=== PATIENT | female | born 1990 | race Caucasian/White ===

== ENCOUNTER 2018-04-02 15:31 | Outpatient (REF) | payer MEDICAID, SELFPAY ==
[2018-04-02 15:45] VITALS: BP 103/72; PULSE 94; RESP 14; TEMP 36.6; O2SAT 97
--- NOTE | 2018-04-02 16:06 | ED.GENADUL_ITS ---
Disposition Clinical Impression: Bruising Disposition: HOME Condition: Good Additional Instructions: your lab work did not show any concerning findings you should contact [facility] for assistance in getting insurance. if you have fevers, severe pain or abdominal pain return to the emergency department Medical Decision Making - Lab Data Results reviewed for labs ordered during visit: Yes - Medical Decision Making pt here with bruising of the legs without known trauma. She has no significant complaints and no bleeding elsewhere so doubt dic or other significant coagulopathy. Will evaluate for this and eval for thrombocytopenia and monitor pt remains stable, ambulating without pain or other changes. No lab abnormalities at this time. Feel she is stable for d/c. Will place on our follow up list to assist in insurance and setting up with local primary care provider - Differential Diagnosis coagulopathy, varices History of Present Illness - General Chief complaint: GenMedical Stated complaint: PER DR BARNEY/HEP-C/BRUISING Time Seen by Provider: 04/02/18 15:44 Source: patient Mode of arrival: ambulatory Limitations: no limitations - History of Present Illness Initial comments: 27 yo female with hx of Hep C not on any medications comes in [facility] she recently moved to the area and has no pcp, and was told by her GI provider's office In [place] to come here due to a few days of small bruising on the legs without known trauma. She denies fevers, chills, chest pain, sob, abd pain, has had general fatigue for 2-3 days otherwise in no distress, is sitting in bed feeding her child without problems. Complaint: bruising of legs Onset/Timin -: days(s) Location: lower extremity Radiation: non-radiation Improves with: none Worsens with: none Treatments Prior to Arrival: none - Related Data Pnv95/Ferrous Fumarate/FA [ Formula Tablet] 1 tab PO DAILY 04/02/18 Allergies Allergy/AdvReac Type Severity Reaction Status Date / Time bee venom protein (honey bee) Allergy Severe Anaphylaxsi Unverified 04/02/18 15: 48 s Review of Systems Constitutional: denies: fever Respiratory: denies: shortness of breath Cardiovascular: denies: chest pain Gastrointestinal: denies: abdominal pain, nausea, vomiting Musculoskeletal: denies: back pain Skin: rash Neurological: denies: headache Comment: All other systems reviewed and negative Past Medical History - Past Medical History hepatitis C - Social History Smoking status: current everyday smoker Alcohol use: none Drug use: none General Exam - General Limitations: no limitations General appearance: alert, in no apparent distress - Head Head exam: Present: atraumatic - Eye Eye exam: Present: normal apperance - ENT ENT exam: Present: mucous membranes moist - Neck Neck exam: Present: normal inspection - Respiratory Respiratory exam: Absent: respiratory distress - Cardiovascular Cardiovascular Exam: Present: regular rate - GI/Abdominal GI/Abdominal exam: Present: soft. Absent: tenderness - Extremities Exam Extremities exam: Present: normal capillary refill, other (small areas of bruising on both legs in multiple areas, that are nontender to palpation and not bigger than 1cm in diameter) - Neurological Exam Neurological exam: Present: alert, oriented X3. Absent: motor sensory deficit - Psychiatric Psychiatric exam: Present: normal affect - Skin Skin exam: Present: warm Course Vital Signs - 24 hr 04/02/18 15:45 Temperature 97.9 F Pulse 94 H Respiratory 14 Rate Blood Pressure 103/72 Pulse Oximetry 97
[2018-04-02 16:15] LABS: HCT 39.3 % (36.0-46.0); HGB 13.1 g/dL (12.0-15.5); Mean Corp. HGB Concentration 33.3 g/dL (32.0-36.0); Mean Corpuscular Hemoglobin 29.4 pg (27.0-33.0); Mean Corpuscular Volume 88.3 fL (80-95); Platelet Count 247 x1000/uL (130-400); RBC 4.45 m/cumm (4.00-5.20); RBC Distribution Width 13.7 % (11.7-14.6); White Blood Cell Count 7.44 k/cumm (4.4-10.8)
[2018-04-02 16:26] LABS: Anion Gap 6.9 mmol/L (3-11); BUN 11 mg/dL (7-18); CO2 31.1 mmol/L (21.0-32.0); CREATININE 0.82 mg/dL (0.55-1.02); Calcium 9.2 mg/dL (8.5-10.1); Chloride 102 mmol/L (98-107); Glucose 105 mg/dL (70-100); Potassium 3.6 mmol/L (3.5-5.1); Sodium 140 mmol/L (136-145)
[2018-04-02 16:49] LABS: PTT Activated 25.5 sec (21.0-31.4); Prothrombin Time 10.2 sec (9.3-10.8)
[2018-04-02 17:02] LABS: ALT 98 U/L (12-78); AST 64 U/L (15-37); Albumin 4.1 g/dL (3.4-5.0); Alkaline Phosphatase 142 U/L (46-116); Bilirubin, Direct 0.07 mg/dL (0.00-0.20); Bilirubin, Total 0.3 mg/dL (0.2-1.0); Total Protein 8.6 g/dL (6.4-8.2)
[2018-04-02 17:47] VITALS: BP 103/72; PULSE 94; RESP 14; TEMP 36.6
--- NOTE | 2018-04-03 07:41 | PDOC.ERCMPRO ---
Care Management Progress Note 04/03/18-Pt seen on 04/02/18 for bruising of legs with no trauma by Dr. Trinh Mendoza. Request for Pt to f/u MAGDA and Pt to establish PCP faxed to [facility] as Niharika Bower is cotton ball machine tender.
--- NOTE | 2018-04-03 07:56 | CMPROGNOTE_ITS ---
Care Management Progress Note 04/03/18-Pt seen on 04/02/18 for bruising of legs with no trauma by Dr. Trinh Mendoza. 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
[2018-06-11 14:45] LABS: Chlamydia Result Negative; GC Result Negative
== END 2018-06-08 16:11 ==
LOC: LBN 06-08 15:51
PROVIDERS: Emergency Provider Emergency Medicine; Referring Provider Nurse Practitioner Women's Health; Visit Provider Nurse Practitioner Women's Health
DX: M79.81 Nontraumatic hematoma of soft tissue (principal); B19.20 Unspecified viral hepatitis C without hepatic coma; Z11.3 Encounter for screening for infections with a predominantly sexual mode of transmission
CPT/HCPCS: 36415; 80048; 80076; 85027; 87491; 87591; 99283; 85610; 85730; 99282

== ENCOUNTER 2018-09-17 12:21 | Outpatient (CLI) | payer MEDICAID, SELFPAY ==
[2018-09-17 13:00] LABS: HCT 40.4 % (36.0-46.0); HGB 13.5 g/dL (12.0-15.5); Mean Corp. HGB Concentration 33.4 g/dL (32.0-36.0); Mean Corpuscular Hemoglobin 30.2 pg (27.0-33.0); Mean Corpuscular Volume 90.4 fL (80-95); Mean Platelet Volume 10.4 fL (8.0-11.0); Platelet Count 202 x1000/uL (130-400); RBC 4.47 m/cumm (4.00-5.20); RBC Distribution Width 12.7 % (11.7-14.6); White Blood Cell Count 4.88 k/cumm (4.4-10.8)
[2018-09-17 14:21] LABS: ALT 112 U/L (12-78); AST 58 U/L (15-37); Albumin 4.6 g/dL (3.4-5.0); Alkaline Phosphatase 110 U/L (46-116); Anion Gap 8.3 mmol/L (3-11); BUN 14 mg/dL (7-18); Bilirubin, Total 0.4 mg/dL (0.2-1.0); CO2 30.7 mmol/L (21.0-32.0); CREATININE 0.69 mg/dL (0.55-1.02); Calcium 9.2 mg/dL (8.5-10.1); Chloride 99 mmol/L (98-107); Cholesterol 156 mg/dL (50-200); Glucose 84 mg/dL (70-100); HCG Quant, Pregnancy 1 mIU/mL (1-3); HDL Cholesterol 82 mg/dL (40-60); LDL CHOLESTEROL 61 mg/dL (<100); Potassium 3.8 mmol/L (3.5-5.1); Sodium 138 mmol/L (136-145); TSH (W/Ref FT4) 0.72 uIU/mL (0.358-3.74); Total Protein 8.7 g/dL (6.4-8.2); Triglyceride 33 mg/dL (30-150)
[2018-09-18 11:39] LABS: Hepatitis C Ab w Rflx HCV PCR Reactive (NEGAT)
== END 2018-09-17 12:41 ==
PROVIDERS: PCP Specialist/Technologist Athletic Trainer; Visit Provider Nurse Practitioner Family
DX: B19.20 Unspecified viral hepatitis C without hepatic coma (principal); R63.4 Abnormal weight loss; Z00.00 Encounter for general adult medical examination without abnormal findings; N91.2 Amenorrhea, unspecified
CPT/HCPCS: 36415; 80053; 80061; 83721; 85027; 86803; 84443; 84702; 87522

== ENCOUNTER 2018-12-29 09:14 | Emergency (ER) | payer MEDICAID, SELFPAY ==
[2018-12-29 09:22] VITALS: BP 95/52; PULSE 89; RESP 16; TEMP 36; O2SAT 100
--- NOTE | 2018-12-29 12:59 | ED.GENADUL_ITS ---
Discharge Plan Disposition Patient Disposition: HOME Condition: Stable Discharge Details Chief Complaint: Sorethroat Clinical Impression: Pharyngitis Primary Care Provider: Ulises Gerardo ED Provider: Ulises Paige Home Meds and New Rx's Prescriptions: No Action PNV cmb#95-ferrous fumarate-FA [ Formula] 1 EACH tablet 1 tab PO DAILY RF: 0 Discharge Instructions Instructions: Pharyngitis (ED) Additional Instructions: 1. Drink plenty of fluids. 2. Continue all medications as prescribed. 3. Acetaminophen 1000mg every 4 hours (up to 5 time a day) and/or ibuprofen 600mg every 6 hours as needed for fever or pain. 4. Start clindamycin as prescribed by your dentist. Return to the Emergency Department (ED) if your condition worsens, does not improve as expected, or for ANY other concerns. Specifically, return if you have new or uncontrolled pain, worsening fever, difficulty breathing, vomiting, or are unable to drink fluids. Medical Decision Making 28-year-old who presents for evaluation of acute throat pain associated with a recent dental procedure. In no distress and describes pain with swallowing but otherwise denies any soft tissue swelling or difficulty handling oral secretions. Exam sitting for hypopharyngeal erythema with mild left-sided soft tissue swelling. No evidence of abscess. Patient has already been prescribed clindamycin after her dental procedure but has not started this medication. Discharge the plan for OTC analgesia, clindamycin as prescribed, and follow-up as needed. Pt evaluated immediately prior to discharge with improved symptoms, normal vital signs, and tolerating PO. The patient feels appropriate for discharge home. Discussed clinical/diagnostic findings. Discharged with a clear plan for outpatient follow up. Given usual and customary return instructions prior to discharge. Medical Records Medical records reviewed: Yes I reviewed the patient's medical records. HPI 28-year-old woman who presents with worsening throat pain. Recently underwent a dental extraction and subsequent to this procedure has noted worsening throat pain which is more severe on her left side. She has pain with swallowing but otherwise denies difficulty handling oral secretions or subjective soft tissue swelling. She denies fever/chills, URI symptoms of cough/congestion. Of note, she was prescribed clindamycin by her dentist after the procedure and is not yet started this medication. General Date/Time Provider Initiated Documentation: 12/29/18 10:01 . Related Data Home Medications Medication Instructions Recorded Confirmed PNV cmb#95-ferrous fumarate-FA 1 tab PO DAILY 04/02/18 12/29/18 [ Formula] Allergies Allergy/AdvReac Type Severity Reaction Status Date / Time amoxicillin Allergy Severe Skin Rash Unverified 12/29/18 09:26 bee venom protein (honey bee) Allergy Severe Anaphylaxsi Unverified 06/08/18 11:03 s venom-wasp Allergy Swelling/Ed Verified 06/08/18 11:03 jake General Stated Complaint: Sorethroat JUNG: 4 Review of Systems Review of Systems All systems are reviewed and are unremarkable except as noted in HPI and below: CONSTITUTIONAL: no fevers/chills, no weakness or change in appetite EYES: no change in vision HEENT: Throat pain, no difficulty swallowing; no neck pain CARDIOVASCULAR: no chest pain, palpitations, leg swelling, or diaphoresis RESPIRATORY: no cough, dyspnea, wheezing GASTROINTESTINAL: no abdominal pain, melena, nausea/emesis GENITOURINARY: no dysuria, flank pain, MUSCULOSKELETAL: no pack pain, myalgias, arthralgias INTEGUMENTARY: no rash, no wounds NEUROLOGIC: no headache, focal weakness, difficulty with speech, numbness PSYCHIATRIC: no confusion, no anxiety HEME: no easy bruising or bleeding ALLERGIC: no urticaria PFSH Medical History Hepatitis C infection (Chronic) Family History Maternal Aunt Breast cancer Diabetes Sister Diabetes Maternal Grandmother Diabetes Mother DVT (deep venous thrombosis) Social History Smoking/Tobacco Use Status: Current every day Tobacco Type: cigarettes Alcohol Intake: never Substance use type: does not use Household members: children Number of Children: 1 current occupation: [employer] Do you feel safe in your relationship?: Yes Female Reproductive History Menstrual control method: none (breast feeding) History History 1 Para Hx # Term Pregnancies 1 Multiple births Hx # Pregnancies Ectopic pregnancies AB induced Hx Number of Living Children AB spontaneous Exam Narrative Exam Narrative: Nursing note and vital signs have been reviewed and noted. GENERAL: alert, active, no acute distress, well -hydrated, well-nourished HEENT: atraumatic/normocephalic, PERRLA, EOMI, conjunctiva clear, external ears/canals normal, nasal mucosa normal; erythematous hypopharynx with minimal left-sided soft tissue swelling; uvula is midline. There is no significant peritonsillar exudate. NECK: supple, full range of motion; no anterior cervical adenopathy. CARDIOVASCULAR: nl pulses, no edema PULMONARY: nl effort, no audible wheezing or stridor ABDOMEN: non-distended EXTREMITY: normal muscle tone, all joints with FROM, no deformity NUERO: normal mentation, moving all extremities, normal stance and gait, PSYCH: alert and oriented SKIN: no new rashes or lesions Course Vital Signs Temperature 96.8 F L 12/29/18 09:22 Pulse 89 12/29/18 09:22 Respiratory Rate 16 12/29/18 09:22 Blood Pressure 95/52 L 12/29/18 09:22 Pulse Oximetry 100 12/29/18 09:22 Temperature 96.8 F L 12/29/18 09:22 Temperature Source Skin 12/29/18 09:22 Pulse 89 12/29/18 09:22 Respiratory Rate 16 12/29/18 09:22 Respiratory Effort Non-Labored 12/29/18 09:25 Blood Pressure 95/52 L 12/29/18 09:22 Pulse Oximetry 100 12/29/18 09:22 Pain Level 3 12/29/18 10:05
== END 2018-12-29 10:06 | disposition home or self-care (01) ==
PROVIDERS: Emergency Provider Emergency Medicine; PCP Specialist/Technologist Athletic Trainer
DX: J02.9 Acute pharyngitis, unspecified (principal)
CPT/HCPCS: 99282

== ENCOUNTER 2019-02-16 19:25 | Emergency (ER) | payer MEDICAID, SELFPAY ==
[2019-02-16 19:34] VITALS: BP 118/75; PULSE 95; RESP 16; TEMP 38.3; O2SAT 100
--- NOTE | 2019-02-16 19:55 | W.ED.GENAD ---
Discharge Plan Disposition Patient Disposition: HOME Condition: Stable Discharge Details Chief Complaint: Cellulitis Clinical Impression: Mastitis, left, acute Primary Care Provider: Ulises Gerardo ED Provider: Solomon Kowalski Home Meds and New Rx's Prescriptions: New clindamycin HCl 300 mg capsule 300 mg PO Q8H 7 Days Qty: 21 RF: 0 No Action PNV cmb#95-ferrous fumarate-FA [ Formula] 1 EACH tablet 1 tab PO DAILY RF: 0 Discharge Instructions Instructions: and Breast Engorgement (ED) Additional Instructions: You have what appears to be early mastitis involving the left breast. You have a fever here therefore it was decided to prescribe antibiotics for your symptoms. The antibiotic does cross into the breast milk although a very small quantity it is important that you monitor for your child's symptoms of diarrhea or blood in his stools. If the symptoms develop contact your commercial driver's license driver. Apply cold compresses to the left breast. Take ibuprofen 600 mg every 8 hours for pain and swelling Referrals: Ulises Gerardo [Primary Care Provider] - 5 days Medical Decision Making This is a nontoxic-appearing 28-year-old female who presents to the emergency department with symptoms concerning for early mastitis. She has a temperature here of 38.3 C along with firmness and mild erythema involving the lateral aspect of the left areola. No discharge noted. We discussed supportive measures including cold compresses and nonsteroidal anti-inflammatories for pain. I have encouraged her to continue to breast-feed along with trying to empty her breast to completion. With the fever and the early symptoms antibiotics are indicated at this time. She has several allergies including amoxicillin with which she reports hives. Therefore, we decided to proceed with clindamycin 300 mg q. 8 x 7 days. We did discuss that this medication will cross into the breastmilk and she should monitor for signs of GI distress and her which would include diarrhea and bloody stools. She will return if her symptoms worsen. HPI General Date/Time Provider Initiated Documentation: 02/16/19 19:54. HPI Narrative: Patient is a 28-year-old female currently breast-feeding presenting to the emergency department with a swollen left breast. She reports some redness over the lateral aspect of the nipple. She has had chills nausea and sweats. She is unsure if she had a fever. She describes significant pain when trying to breast-feed. She has not been able to fully empty her left breast. No nipple discharge Related Data Home Medications Medication Instructions Recorded Confirmed PNV cmb#95-ferrous fumarate-FA 1 tab PO DAILY 04/02/18 02/16/19 [ Formula] clindamycin HCl 300 mg PO Q8H 7 Days #21 cap 02/16/19 Previous Rx's Medication Instructions Recorded clindamycin HCl 300 mg PO Q8H 7 Days #21 cap 02/16/19 Allergies Allergy/AdvReac Type Severity Reaction Status Date / Time amoxicillin Allergy Severe Skin Rash Unverified 02/16/19 19:41 bee venom protein (honey bee) Allergy Severe Anaphylaxsi Unverified 02/16/19 19:41 s venom-wasp Allergy Swelling/Ed Verified 02/16/19 19:41 jake General Stated Complaint: Cellulitis JUNG: 3 Review of Systems Constitutional Reports chills, Reports fatigue, Reports fever(s), Denies night sweats and Denies weakness Eyes Denies eye discharge ENT Denies sore throat Cardiovascular Denies chest pain and Denies dyspnea Respiratory Denies cough and Denies dyspnea Gastrointestinal Denies diarrhea, Reports nausea and Denies vomiting Genitourinary Denies nipple discharge and Denies dysuria Musculoskeletal Denies arthralgias and Denies joint swelling Integumentary/Breasts Reports lesions (Erythema over the lateral left area areola) and Denies nipple discharge Neurologic Denies weakness Endocrine Reports fatigue PFSH Medical History Hepatitis C infection (Chronic) Family History Maternal Aunt Breast cancer Diabetes Sister Diabetes Maternal Grandmother Diabetes Mother DVT (deep venous thrombosis) Social History Smoking/Tobacco Use Status: Current every day Tobacco Type: cigarettes Alcohol Intake: never Substance use type: does not use Household members: children Number of Children: 1 current occupation: [employer] Do you feel safe at home: Yes Do you feel safe in your relationship?: Yes Female Reproductive History Menstrual control method: none (breast feeding) History History 1 Para Hx # Term Pregnancies 1 Multiple births Hx # Pregnancies Ectopic pregnancies AB induced Hx Number of Living Children AB spontaneous Exam Const General: cooperative, healthy appearing and comfortable Orientation: alert and awake [facility] Head: normal to inspection Eyes General: appearance normal, both eyes and all related structures Neck Neck: normal visual inspection, full ROM, no lymphadenopathy and no meningeal signs Chest Other: Pain and firmness noted over the lateral aspect of the left breast. No nipple discharge. Mild erythema noted. Area is slightly warm to touch Resp Effort & Inspection: normal respiratory effort Auscultation: clear to auscultation bilaterally Cardio Rate: regular rate Rhythm: regular rhythm Heart Sounds: S1 normal and S2 normal GI Inspection: normal to inspection Palpation: soft Back/Spine/Pelvis Back: no CVA tenderness Skin Trauma: no lacerations or abrasions Wounds: no wounds Extrem General: normal to inspection Course Vital Signs Temperature 38.3 C H 02/16/19 19:34 Pulse 95 H 02/16/19 19:34 Respiratory Rate 16 02/16/19 19:34 Blood Pressure 118/75 02/16/19 19:34 Pulse Oximetry 100 02/16/19 19:34 Temperature 38.3 C H 02/16/19 19:34 Temperature Source Temporal Artery Scan 02/16/19 19:34 Pulse 95 H 02/16/19 19:34 Respiratory Rate 16 02/16/19 19:34 Respiratory Effort 02/16/19 19:34 Blood Pressure 118/75 02/16/19 19:34 Pulse Oximetry 100 02/16/19 19:34 Oxygen Delivery Method Room Air 02/16/19 19:34 Oxygen Flow Rate 0 02/16/19 19:34 Pain Level 10 02/16/19 19:34
[2019-02-16] MEDS: Clindamycin 300 MG CAP PO (20:10)
== END 2019-02-16 20:25 | disposition home or self-care (01) ==
PROVIDERS: Emergency Provider Physician Assistant; PCP Specialist/Technologist Athletic Trainer
DX: N61.0 Mastitis without abscess (principal)
CPT/HCPCS: 99283

== ENCOUNTER 2019-02-17 17:15 | Emergency (ER) | payer MEDICAID, SELFPAY ==
[2019-02-17 17:40] VITALS: BP 108/70; PULSE 84; RESP 16; TEMP 36.8; O2SAT 98
--- NOTE | 2019-02-17 18:28 | ED.GENADUL_ITS ---
Discharge Plan Disposition Patient Disposition: HOME Condition: Fair Discharge Details Chief Complaint: Cellulitis Clinical Impression: Mastitis Primary Care Provider: Ulises Gerardo ED Provider: Sharon Sarmiento Home Meds and New Rx's Prescriptions: Continued PNV cmb#95-ferrous fumarate-FA [ Formula] 1 EACH tablet 1 tab PO DAILY RF: 0 clindamycin HCl 300 mg capsule 300 mg PO Q8H 7 Days Qty: 21 RF: 0 ibuprofen [Advil Liqui-Gel] 200 mg Capsule 600 mg PO Q6H RF: 0 Discharge Instructions Instructions: Mastitis (ED) Additional Instructions: Encourage hydration. Try massage while breast-feeding. Continue to breast-feed and pump as she previously had. Use cold compresses. Continue with the clindamycin as prescribed. If you develop new or worsening symptoms please seek care urgently once again. Otherwise, please follow-up with your primary care in the next 2 to 3 days for reevaluation. Referrals: Ulises Gerardo [Primary Care Provider] - Discharge Data Discharge Date/Time-TO BE ENTERED AT DEPARTURE: 02/17/19 18:30 Medical Decision Making Patient is a 28-year-old female presents today with chief complaint of left breast pain. She reports the pain began a few days ago. Patient is currently breast-feeding. She diagnosed with mastitis and began on clindamycin. She reports she is taken 2 doses thus far and is already feeling improved. However, she is concerned that she has since developed a firm area in the lateral aspect of the left breast. Also began noting erythema that was not there initially. Patient has continued to breast-feed and pump. On exam, she appears nontoxic. Vital signs are within normal limits. She does have a area of erythema on the lateral aspect of the left breast approximately 10 cm in diameter. She is focal area of well-circumscribed induration approximately 4 cm x 8 cm in size. No area of fluctuance to suggest an abscess. I did examine this with an ultrasound and unable to find any pocket of fluid Patient was evaluated by general surgeon who agrees no evidence of abscess. She feels this is just acute mastitis advised that she continue with the antibiotics, cold compresses and massage. Encouraged continued breast-feeding. Patient I discussed new/worsening symptoms when to seek care urgently once again, particular signs of progression of infection. Advise follow-up with primary care this week, she Richard has an appointment in 3 days. All of her questions and concerns were addressed and she is in agreement this plan. She will continue with clindamycin as previously prescribed HPI General Mode of arrival: ambulatory . Date/Time Provider Initiated Documentation: 02/17/19 17:35 . Limitations to Documentation: no limitations . Information obtained by: patient and RN notes reviewed . History of Present Illness 28 year old F presents to the emergency department with the chief complaint of Left breast pain, described as moderate, with intensity rated at 7. Quality is described as burning, and is localized to the chest. Patient reports no radiation. Patient started experiencing this day(s) and it has been constant. No relieving factors improve symptom(s), No exacerbating factors reported . Patient notes denies cough, diaphoresis, fever/chills (Initially had fevers but since resolved), malaise, nausea/vomiting, rash, shortness of breath and weakness. Patient did receive the following treatments prior to arrival, other (Patient on clindamycin) Related Data Home Medications Medication Instructions Recorded Confirmed PNV cmb#95-ferrous fumarate-FA 1 tab PO DAILY 04/02/18 02/17/19 [ Formula] clindamycin HCl 300 mg PO Q8H 7 Days #21 cap 02/16/19 02/17/19 ibuprofen [Advil Liqui-Gel] 600 mg PO Q6H 02/17/19 02/17/19 Previous Rx's Medication Instructions Recorded clindamycin HCl 300 mg PO Q8H 7 Days #21 cap 02/16/19 Allergies Allergy/AdvReac Type Severity Reaction Status Date / Time amoxicillin Allergy Severe Skin Rash Unverified 02/17/19 17:44 bee venom protein (honey bee) Allergy Severe Anaphylaxsi Unverified 02/17/19 17:44 s venom-wasp Allergy Swelling/Ed Verified 02/17/19 17:44 jake General Stated Complaint: Cellulitis JUNG: 3 Review of Systems Constitutional Reports as per HPI, Denies chills, Denies fatigue, Denies fever(s) and Denies headache(s) ENT Denies headache(s) Cardiovascular Reports as per HPI, Denies chest pain and Denies dyspnea Respiratory Reports as per HPI, Denies cough and Denies dyspnea Gastrointestinal Reports as per HPI Musculoskeletal Reports as per HPI and Denies back pain Integumentary/Breasts Reports as per HPI and Reports erythema (Erythematous area to lateral aspect of left breast with induration) Neurologic Reports as per HPI and Denies headache(s) Endocrine Denies fatigue PFSH Medical History Hepatitis C infection (Chronic) Social History Smoking/Tobacco Use Status: Current every day Tobacco Type: cigarettes Alcohol Intake: never Substance use type: does not use Household members: children Number of Children: 1 current occupation: [employer] Do you feel safe at home: Yes Do you feel safe in your relationship?: Yes Female Reproductive History Menstrual control method: none (breast feeding) History History 1 Para Hx # Term Pregnancies 1 Multiple births Hx # Pregnancies Ectopic pregnancies AB induced Hx Number of Living Children AB spontaneous Exam Const General: cooperative, healthy appearing, comfortable, no acute distress and well developed Nutritional Appearance: average body habitus and well nourished Orientation: alert and awake HENMT Head: normal to inspection Mouth: moist mucous membranes Chest Breast inspection: abnormal inspection of the breast (Erythema noted left lateral breast with associated area of induration 4x8cm) Resp Effort & Inspection: normal respiratory effort, able to speak in complete sentences and no respiratory distress Auscultation: clear to auscultation bilaterally, no rales, no rhonchi and no wheezes Cardio Rate: regular rate Rhythm: regular rhythm Heart Sounds: S1 normal and S2 normal Skin General skin exam: erythema (as above) Neuro General: alert and awake Cognition: normal cognition Speech: speech normal Gait: normal gait Psych Appearance: grossly normal and well kempt Mental Status: mental status grossly normal Speech and Movement: speech and movement normal Course Vital Signs Temperature 36.8 C 02/17/19 17:40 Pulse 84 02/17/19 17:40 Respiratory Rate 16 02/17/19 17:40 Blood Pressure 108/70 02/17/19 17:40 Pulse Oximetry 98 02/17/19 17:40 Temperature 36.8 C 02/17/19 17:40 Temperature Source Temporal Artery Scan 02/17/19 17:40 Pulse 84 02/17/19 17:40 Respiratory Rate 16 02/17/19 17:40 Respiratory Effort Non-Labored 02/17/19 18:03 Blood Pressure 108/70 02/17/19 17:40 Blood Pressure Position Sitting 06/02/19 17:40 Pulse Oximetry 98 02/17/19 17:40 Oxygen Delivery Method Room Air 02/17/19 17:40 Oxygen Flow Rate 0 02/17/19 17:40 Pain Level 7 02/17/19 17:40
== END 2019-02-17 18:30 | disposition home or self-care (01) ==
PROVIDERS: Emergency Provider Physician Assistant; PCP Specialist/Technologist Athletic Trainer
DX: O91.23 Nonpurulent mastitis associated with lactation (principal)
CPT/HCPCS: 99283

== ENCOUNTER 2019-06-06 23:59 | Emergency (ER) | payer MEDICAID, SELFPAY ==
[2019-06-07 00:05] VITALS: BP 105/74; PULSE 107; RESP 16; TEMP 36.9; O2SAT 95
--- NOTE | 2019-06-07 00:09 | ED.GENADUL_ITS ---
Discharge Plan Disposition Patient Disposition: HOME Condition: Good Discharge Details Chief Complaint: Abd Prob Clinical Impression: Nausea, vomiting and diarrhea, Dehydration Primary Care Provider: Ulises Gerardo ED Provider: Gokul Haro Meds and New Rx's Prescriptions: New metoclopramide HCl [Reglan] 10 mg tablet 10 mg PO Q6H PRN (Reason: nausea and vomiting) Qty: 10 RF: 0 Continued ibuprofen [Advil Liqui-Gel] 200 mg Capsule 600 mg PO Q6H RF: 0 Discharge Instructions Instructions: Dehydration (ED), Acute Nausea and Vomiting (ED) Additional Instructions: It is important to try to stay hydrated especially if still having diarrhea. Eating is not as important as drinking is. Use Reglan as needed. Follow-up with primary care next week if not feeling better. Return to ED for further fainting, persistent vomiting, new or worsening pain, bloody diarrhea, spiking high fevers. Referrals: Ulises Gerardo [Primary Care Provider] - Medical Decision Making Patient presenting with complaints of nausea, vomiting and diarrhea today. Possible syncopal event tonight. She has abdominal cramping but not persistent pain. She is a little tachycardic but otherwise looks well. Her abdomen is benign. Will place IV and give fluids. We will give Reglan for nausea and vomiting as she is breast-feeding. Will check laboratory studies. Will do EKG and orthostatics. Patient mildly orthostatic after 1 L fluid. Blood pressure right around 100. EKG is sinus tach with normal axis and intervals. Laboratory studies unremarkable. White count normal. Hemoglobin normal. Kidney function normal. Potassium slightly low. test negative. We will give a another liter of saline. Nausea much less after the Reglan. Will try p.o. challenge. Patient doing much better. She is tolerating p.o. We will plan discharge when second liter is complete with prescription for Reglan and as needed. Follow-up with primary care next week if not better. Return to ED for persistent/worsening abdominal pain, high fever, persistent vomiting, bloody diarrhea. Lab Data Lab results reviewed: Yes I reviewed the patient's lab results. ECG Data Attestation: I personally reviewed and interpreted this ECG (s) as follows: Prior ECG tracings: available for review Interpretation: Sinus tachycardia at 105. Normal axis and intervals. Mild nonspecific ST changes. Nothing acute. HPI General Mode of arrival: ambulatory . Date/Time Provider Initiated Documentation: 06/07/19 00:01 . Limitations to Documentation: no limitations . Information obtained by: patient and RN notes reviewed . HPI Narrative: Patient presents to ED with complaints of nausea, vomiting and diarrhea that started this morning when she got up. She has been unable to really eat or drink anything. She becomes too nauseated when she tries. She has had 2-3 episodes of emesis and 2-3 episodes of diarrhea. They are non-bloody. She has had sweats but does not know whether she has had fever. Tonight she woke up and felt like she could not move and stiff all over. She was lightheaded went to the bathroom and got tunnel vision. While sitting on the toilet she thinks she passed out. She subsequently here for evaluation. She has abdominal cramping but not persistent pain. She has no chest pain or shortness of breath. She has no headache or neurologic symptoms. There has been no travel outside the [place]. She has not been around anyone ill. No unsafe water or food that she is aware of. Related Data Home Medications Medication Instructions Recorded Confirmed ibuprofen [Advil Liqui-Gel] 600 mg PO Q6H 02/17/19 06/07/19 metoclopramide HCl [Reglan] 10 mg PO Q6H PRN #10 tab 06/07/19 Previous Rx's Medication Instructions Recorded metoclopramide HCl [Reglan] 10 mg PO Q6H PRN #10 tab 06/07/19 Allergies Allergy/AdvReac Type Severity Reaction Status Date / Time amoxicillin Allergy Severe Skin Rash Unverified 06/07/19 00:08 bee venom protein (honey bee) Allergy Severe Anaphylaxsi Unverified 06/07/19 00:08 s venom-wasp Allergy Swelling/Ed Verified 06/07/19 00:08 jake General Stated Complaint: Abd Prob JUNG: 3 Review of Systems Review of Systems Narrative: 07/01 Review of Systems completed and is negative except as stated above in HPI (Systems reviewed: Const, Eyes, ENT, Resp, CV, GI, , MSK, Skin, Neuro) PFSH Medical History Hepatitis C infection (Chronic) Social History Smoking/Tobacco Use Status: Current every day Tobacco Type: cigarettes Alcohol Intake: never Substance use type: does not use Household members: children Number of Children: 1 current occupation: [employer] Do you feel safe at home: Yes Do you feel safe in your relationship?: Yes Female Reproductive History Menstrual control method: none (breast feeding) History History 1 Para Hx # Term Pregnancies 1 Multiple births Hx # Pregnancies Ectopic pregnancies AB induced Hx Number of Living Children AB spontaneous Exam Narrative Exam Narrative: Vitals: Afebrile. Mild tachycardia. Normal BP and pulse ox. Const: WDWN female in NAD. HEENT: NC/AT. Normal facial exam. Eyes: Normal conjunctiva and sclera. Neck: Supple. Trachea midline. Lungs: Normal respiratory effort. Lungs are clear. Cor: RRR without murmur/gallop. Good radial pulses. GI: Soft. NT/ND. No guarding or rebound. Neuro: A+O x 3. CN grossly in tact. Normal speech, cognition, gait, strength and sensation. Ext: No C/C/E. No deformity or tenderness. Skin: Warm and dry without rash. Course Vital Signs Vital signs: Vital Signs Temperature 98.4 F 06/07/19 00:05 Pulse 107 H 06/07/19 00:05 Respiratory Rate 16 06/07/19 00:05 Blood Pressure 105/74 06/07/19 00:05 Pulse Oximetry 95 06/07/19 00:05 Temperature 98.4 F 06/07/19 00:05 Temperature Source Skin 06/07/19 00:05 Pulse 107 H 06/07/19 00:05 Respiratory Rate 16 06/07/19 00:05 Blood Pressure 105/74 06/07/19 00:05 Blood Pressure Position Sitting 06/07/19 00:05 Pulse Oximetry 95 06/07/19 00:05 Oxygen Delivery Method Room Air 06/07/19 00:05 Oxygen Flow Rate 0 06/07/19 00:05 Pain Level 0 06/07/19 00:05
[2019-06-07] MEDS: Normal Saline 1,000 ML 1000 ML IV ×2 (00:43→01:25)
[2019-06-07 00:47] LABS: Absolute Basophil Count 0.02 k/cumm (0.0-0.2); Absolute Eosinophil Count 0.04 k/cumm (0.0-0.7); Absolute Lymphocyte Count 0.85 k/cumm (1.2-3.4); Absolute Monocyte Count 0.42 k/cumm (0.11-0.7); Absolute Neutrophil Count 3.76 k/cumm (1.2-6.7); Basophils % 0.4; Eosinophils % 0.8; HCT 38.5 % (36.0-46.0); HGB 13.3 g/dL (12.0-15.5); Lymphocytes % 16.7; Mean Corp. HGB Concentration 34.5 g/dL (32.0-36.0); Mean Corpuscular Hemoglobin 30.6 pg (27.0-33.0); Mean Corpuscular Volume 88.5 fL (80-95); Mean Platelet Volume 10.3 fL (8.0-11.0); Monocytes % 8.3; Neutrophils % 73.8; Platelet Count 147 x1000/uL (130-400); RBC 4.35 m/cumm (4.00-5.20); White Blood Cell Count 5.09 k/cumm (4.4-10.8)
[2019-06-07] MEDS: Metoclopramide 10 MG/2 ML VIAL IVP (00:48)
[2019-06-07 00:58] LABS: Lipase 188 U/L (73-393)
[2019-06-07 01:01] LABS: ALT 52 U/L (14-59); AST 31 U/L (15-37); Albumin 3.8 g/dL (3.4-5.0); Alkaline Phosphatase 80 U/L (46-116); Anion Gap 9.1 mmol/L (3-11); BUN 15 mg/dL (7-18); Bilirubin, Total 0.5 mg/dL (0.2-1.0); CO2 27.9 mmol/L (21.0-32.0); Calcium 8.3 mg/dL (8.5-10.1); Chloride 102 mmol/L (98-107); Glucose 99 mg/dL (70-100); Potassium 3.4 mmol/L (3.5-5.1); Sodium 139 mmol/L (136-145); Total Protein 7.6 g/dL (6.4-8.2)
[2019-06-07 01:19] VITALS: BP 100/57; BP 101/53; BP 99/65; PULSE 102; PULSE 108; PULSE 98
[2019-06-07 01:58] LABS: HCG Qual (Serum) Negative
== END 2019-06-07 02:20 | disposition home or self-care (01) ==
PROVIDERS: Emergency Provider Emergency Medicine; PCP Specialist/Technologist Athletic Trainer
DX: R11.2 Nausea with vomiting, unspecified (principal); R19.7 Diarrhea, unspecified; E86.0 Dehydration; E87.6 Hypokalemia
CPT/HCPCS: 36415; 80053; 83690; 93005; 96361; 96374; 99284; 84703; 85025; 93010; J2765

== ENCOUNTER 2019-09-23 12:47 | Outpatient (CLI) | payer MEDICAID, SELFPAY ==
[2019-09-23 13:42] LABS: Abs Immature Grans 0.01 k/cumm (0.0-0.09); Absolute Basophil Count 0.03 k/cumm (0.0-0.2); Absolute Eosinophil Count 0.08 k/cumm (0.0-0.7); Absolute Lymphocyte Count 1.47 k/cumm (1.2-3.4); Absolute Monocyte Count 0.59 k/cumm (0.11-0.7); Absolute Neutrophil Count 5.85 k/cumm (1.2-6.7); Basophils % 0.4; HCT 38.5 % (36.0-46.0); HGB 13.2 g/dL (12.0-15.5); Immature Grans % 0.1 %; Lymphocytes % 18.3; Mean Corp. HGB Concentration 34.3 g/dL (32.0-36.0); Mean Corpuscular Hemoglobin 30.5 pg (27.0-33.0); Mean Corpuscular Volume 88.9 fL (80-95); Mean Platelet Volume 10.2 fL (8.0-11.0); Monocytes % 7.3; Neutrophils % 72.9; Platelet Count 250 x1000/uL (130-400); RBC 4.33 m/cumm (4.00-5.20); RBC Distribution Width 12.9 % (11.7-14.6); White Blood Cell Count 8.03 k/cumm (4.4-10.8)
[2019-09-23 18:57] LABS: TSH (W/Ref FT4) 0.31 uIU/mL (0.36-3.74)
[2019-09-24 11:43] LABS: Hepatitis B Surface Ag Negative (Negative)
[2019-09-24 11:53] LABS: Rubella IgG Ab (UVM) Positive (See Note); Varicella IgG Antibody Positive (See Note)
[2019-09-24 12:07] LABS: HIV-1/2 Ag & Ab Screen Negative (Negative)
[2019-09-24 12:20] LABS: Hepatitis C Ab w Rflx HCV PCR Reactive (Negative)
[2019-09-24 13:05] LABS: Chlamydia Result Negative (Negative); GC Result Negative (Negative)
[2019-09-24 14:55] LABS: Syphilis Total Ab w/Reflex Nonreactive (Nonreactive)
[2019-09-24 15:06] LABS: FREE T4 1.12 ng/dL (0.76-1.46)
[2019-09-24 16:15] LABS: *AMPHETAMINES SCREEN URINE Negative (Negative); *BARBITURATES SCREEN URINE Negative (Negative); *BENZODIAZEPINES SCREEN URINE Negative (Negative); Cannabinoids THC Negative (Negative); Cocaine Screen,Urine Negative (Negative); METHADONE URINE SCREEN Negative (Negative); OPIATES URINE SCREEN POSITIVE (Negative)
[2019-09-24 16:22] LABS: Tricyclic Antidepressants Negative (Negative)
[2019-09-26 12:03] LABS: Buprenorphine Negative; Norbuprenorphine Negative
== END 2019-09-23 13:07 ==
PROVIDERS: PCP Specialist/Technologist Athletic Trainer; Visit Provider Advanced Practice Midwife
DX: Z34.91 Encounter for supervision of normal pregnancy, unspecified, first trimester (principal); Z11.3 Encounter for screening for infections with a predominantly sexual mode of transmission; Z11.4 Encounter for screening for human immunodeficiency virus [HIV]; Z11.59 Encounter for screening for other viral diseases; Z01.84 Encounter for antibody response examination
CPT/HCPCS: 36415; 80307; 86787; 86803; 86850; 86900; 86901; 87340; 87389; 87491; 87591; 84439; 84443; 85025; 86762; 86780; 87086; 87522

== ENCOUNTER 2019-09-23 14:47 | Outpatient (REF) | payer MEDICAID, SELFPAY ==
--- NOTE | 2019-09-23 12:40 | PAPFT_PTH ---
PATIENT: Sandro Kan LOC: [facility] U#:[id number] AGE/SX: 28/F ROOM: RE09/23/[address]: Wolf Ornelas RN : 1990 BED: DIS: 09/23/2019 SPEC #: [id number] RECD: 09/23/19 17:48 STATUS: MONIQUE MOBLEY #: [id number] CHRISTOPHER: 09/23/19 12:[address]: Wolf Ornelas DEPT: [facility] Cytology RECD BY: Antonia Wilder ENTERED: 09/23/19 17:49 SP TYPE: PAPFT OTHR DR: Ulises Gerardo Tissues: 1 - CX/ENDOCX FOR PAP SMEARS Procedures: PAP THIN PREP/[facility] Screening Comments: [id number]
== END 2019-09-23 15:07 ==
LOC: LBN 14:47
PROVIDERS: PCP Specialist/Technologist Athletic Trainer; Visit Provider Advanced Practice Midwife
DX: Z12.4 Encounter for screening for malignant neoplasm of cervix (principal)
CPT/HCPCS: 88142

== ENCOUNTER 2019-10-09 13:08 | Outpatient (REF) | payer MEDICAID, SELFPAY ==
[2019-10-09 14:12] LABS: *AMPHETAMINES SCREEN URINE Negative (Negative); *BARBITURATES SCREEN URINE Negative (Negative); *BENZODIAZEPINES SCREEN URINE Negative (Negative); Cannabinoids THC Negative (Negative); Cocaine Screen,Urine Negative (Negative); METHADONE URINE SCREEN Negative (Negative); OPIATES URINE SCREEN Negative (Negative)
[2019-10-09 14:15] LABS: Tricyclic Antidepressants Negative (Negative)
== END 2019-10-09 13:28 ==
LOC: LBN 13:08
PROVIDERS: PCP Specialist/Technologist Athletic Trainer; Visit Provider Advanced Practice Midwife
DX: Z34.91 Encounter for supervision of normal pregnancy, unspecified, first trimester (principal)
CPT/HCPCS: 80307

== ENCOUNTER 2019-10-18 21:18 | Outpatient (REF) | payer MEDICAID, SELFPAY ==
[2019-10-18 16:34] LABS: *AMPHETAMINES SCREEN URINE Negative (Negative); *BARBITURATES SCREEN URINE Negative (Negative); *BENZODIAZEPINES SCREEN URINE Negative (Negative); Cannabinoids THC Negative (Negative); Cocaine Screen,Urine Negative (Negative); METHADONE URINE SCREEN Negative (Negative); OPIATES URINE SCREEN Negative (Negative)
[2019-10-18 17:30] LABS: Tricyclic Antidepressants Negative (Negative)
== END 2019-10-18 21:38 ==
LOC: LBN 21:18
PROVIDERS: PCP Specialist/Technologist Athletic Trainer; Visit Provider Advanced Practice Midwife
DX: F19.21 Other psychoactive substance dependence, in remission (principal)
CPT/HCPCS: 80307

== ENCOUNTER 2019-11-15 04:16 | Outpatient (CLI) | payer MEDICAID, SELFPAY ==
[2019-11-15 14:15] LABS: Kit/Specimen SENT
--- NOTE | 2019-11-15 14:15 | DI.US_ITS ---
EXAM: US OB 2-3 TRIMESTER CLINICAL HISTORY: routine [facility] Z34.90 SUPERVISION NORMAL TECHNIQUE: Ultrasound performed using standard protocol. COMPARISON: No exams were available for comparison FINDINGS: Fetus is in breech position. The placenta is posterior and low lying. The edge of the placenta armond sures 1 cm to the internal os. The Biometric measurements correspond to 18 weeks 5 days, consistent with previous dating. No abnormalities are seen. The amount of amniotic fluid appears visual ly normal. IMPRESSION: survey is with in normal limits. A low-lying placenta is noted. DATA REPOSITORY:
[2019-11-22 10:55] LABS: Result Summary NEGATIVE; Specimen WB Whole Blood
== END 2019-11-15 04:36 ==
PROVIDERS: PCP Specialist/Technologist Athletic Trainer; Visit Provider Advanced Practice Midwife
DX: O44.22 Partial placenta previa NOS or without hemorrhage, second trimester (principal); Z36.89 Encounter for other specified antenatal screening; Z3A.18 18 weeks gestation of pregnancy
CPT/HCPCS: 36415; 76805; 81220

== ENCOUNTER 2019-12-26 15:03 | Outpatient (CLI) | payer MEDICAID, SELFPAY | END 2019-12-26 15:23 | PROVIDERS: Visit Provider Advanced Practice Midwife | DX: O36.8120 Decreased fetal movements, second trimester, not applicable or unspecified (principal); Z3A.24 24 weeks gestation of pregnancy; O26.892 Other specified pregnancy related conditions, second trimester | CPT/HCPCS: 59025 ==

== ENCOUNTER 2020-01-23 01:13 | Outpatient (CLI) | payer MEDICAID, SELFPAY ==
--- NOTE | 2020-01-23 09:43 | DI.US_ITS ---
EXAM: US OB F/U FACIAL/LVOT/RVOT CLINICAL HISTORY: f/u placental location,O44.52. COMPARISON: US US OB 2-3 TRIMESTER from 11/15/2019 TECHNIQUE: Transabdominal obstetrical ultrasound performed. FINDINGS: Sonographic images demonstrate a single intrauterine gestation in cephalic position. The placenta is posterior. Placental tip measures 6.7 cm from the internal os. Estimated date of delivery based upon previous datin April 06. heart rate motion is Dopplered at: 136 bpm. Amount of amniotic fluid is within normal limits. IMPRESSION: Posterior placenta without evidence of previa.. DATA REPOSITORY:
== END 2020-01-23 01:33 ==
PROVIDERS: PCP Nurse Practitioner Family; Visit Provider Advanced Practice Midwife
DX: O44.53 Low lying placenta with hemorrhage, third trimester (principal)
CPT/HCPCS: 76815

== ENCOUNTER 2020-01-23 10:33 | Outpatient (CLI) | payer MEDICAID, SELFPAY ==
[2020-01-23 11:29] LABS: HCT 33.4 % (36.0-46.0); HGB 11.3 g/dL (12.0-15.5); Mean Corp. HGB Concentration 33.8 g/dL (32.0-36.0); Mean Corpuscular Hemoglobin 30.1 pg (27.0-33.0); Mean Corpuscular Volume 88.8 fL (80-95); Mean Platelet Volume 10.6 fL (8.0-11.0); Platelet Count 247 x1000/uL (130-400); RBC 3.76 m/cumm (4.00-5.20); RBC Distribution Width 12.3 % (11.7-14.6); White Blood Cell Count 6.92 k/cumm (4.4-10.8)
[2020-01-23 11:33] LABS: Glucose,1 Hr (Glucola) 96 mg/dL (80-140)
[2020-01-23 12:13] LABS: ALT 31 U/L (14-59); AST 30 U/L (15-37); Albumin 2.5 g/dL (3.4-5.0); Alkaline Phosphatase 89 U/L (46-116); Bilirubin, Direct 0.06 mg/dL (0.00-0.20); Bilirubin, Total 0.1 mg/dL (0.2-1.0); Total Protein 6.8 g/dL (6.4-8.2)
== END 2020-01-23 10:53 ==
PROVIDERS: PCP Nurse Practitioner Family; Visit Provider Advanced Practice Midwife
DX: O98.413 Viral hepatitis complicating pregnancy, third trimester
CPT/HCPCS: 80076; 82950; 85027

== ENCOUNTER 2020-08-03 14:34 | Outpatient (REF) | payer MEDICAID, SELFPAY ==
[2020-08-06 16:58] LABS: Patient Race White; SARS-CoV-2 RNA Undetected (Undetected); SARS-CoV-2 Specimen Source Nasal
== END 2020-08-03 14:54 ==
LOC: NCHCN 14:34
PROVIDERS: PCP Nurse Practitioner Family; Visit Provider Nurse Practitioner Family
DX: Z00.00 Encounter for general adult medical examination without abnormal findings (principal)
CPT/HCPCS: U0003

== ENCOUNTER 2022-06-06 16:48 | Outpatient (REF) | payer MEDICAID, SELFPAY ==
[2022-06-08 13:26] LABS: Chlamydia Result Negative (Negative); GC Result Negative (Negative)
== END 2022-06-06 16:49 | disposition home or self-care (01) ==
LOC: NCHCN 16:48
PROVIDERS: PCP Nurse Practitioner Family; Visit Provider Nurse Practitioner Family
DX: E03.9 Hypothyroidism, unspecified (principal); Z11.3 Encounter for screening for infections with a predominantly sexual mode of transmission
CPT/HCPCS: 87491; 87591; 87480; 87510; 87660